=== PATIENT | female | born 1945 | race Caucasian/White ===

== ENCOUNTER → 2017-10-20 12:04 | Outpatient (CLI) | payer MEDICARE, OTHER, SELFPAY ==
--- NOTE | 2017-10-20 | DI.MG.S_ITS ---
BILATERAL DIGITAL DIAGNOSTIC MAMMOGRAM 3D/2D: 10/20/2017 CLINICAL: Right breast lump. Family history of breast cancer. Comparison is made to exams dated: 01/08/2015 mammogram - [facility], 02/27/2010 mammogram, and 02/11/2007 mammogram - [facility]. The tissue of both breasts is predominantly fatty. No significant masses, calcifications, or other findings are seen in either breast. IMPRESSION: INCOMPLETE: NEEDS ADDITIONAL IMAGING EVALUATION There is no mammographic abnormality seen in the right breast to correspond with the palpable abnormality and pain, however, ultrasound is recommended. This exam was interpreted at Station ID: [id number]. NOTE: For mammograms, a report in lay terms will be sent to the patient. Approximately 15% of breast malignancies will not be visualized mammographically. In the management of a palpable breast mass, a negative mammogram must not discourage biopsy of a clinically suspicious lesion. Electronically Signed By: Dominga durbin/charisse:10/20/2017 17:04:45 letter sent: Additional Imaging Needed ACR BI-RADS Category 0: Incomplete [id number]
--- NOTE | 2017-10-20 | DI.US.S_ITS ---
PROCEDURE: US BREAST RT LIMITED COMPARISON: None. INDICATIONS: RIGHT BREAST LUMP FINDINGS: IMPRESSION: Dictated by: Dominga Bhardwaj M.D. on 10/20/2017 at 17:03 Approved by: Dominga Bhardwaj M.D. on 10/20/2017 at 17:05
== END ==
PROVIDERS: Family Provider Family Medicine; PCP Family Medicine; Visit Provider Family Medicine
DX: R92.8 Other abnormal and inconclusive findings on diagnostic imaging of breast (principal); N64.4 Mastodynia; N63.10 Unspecified lump in the right breast, unspecified quadrant; Z80.3 Family history of malignant neoplasm of breast
CPT/HCPCS: 76642; 77066; G0279

== ENCOUNTER 2018-10-26 08:04 | Day surgery (SDC) | payer MEDICARE, OTHER, SELFPAY ==
[2018-10-22 10:38] VITALS: BMI 34.7
--- NOTE | 2018-10-26 | DI.RAD.S_ITS ---
PROCEDURE: XR LUMBAR SPINE 2-3V INDICATIONS: L3 KYPHOPLASTY TECHNIQUE: 3 views of the lumbar spine were acquired. COMPARISON: Gilbert Balderrama, CARLIE, L-SPINE MINIMUM 4 VIEWS, 10/11/2012, 12:50. FINDINGS: Fluoroscopic images demonstrating operative marker and subsequent cement at the level LIII consistent with kyphoplasty. Cement is also noted at L4. There is questionable appearance of possible cement extravasation of L3. IMPRESSION: Kyphoplasty as above. Dictated by: Anabell Bingham M.D. on 10/26/2018 at 19:24 Approved by: Anabell Bingham M.D. on 10/26/2018 at 19:25
--- NOTE | 2018-10-26 | PATH_ITS ---
[facility] Accession Number: [id number] . 01 Material submitted: . bone - BONE L3 . 01 Diagnosis: Bone L3, Biopsy: Fragments of bone and marrow with hemorrhage, fibrosis and associated repair/remodeling, consistent with fracture changes. Negative for malignancy. MRV 10/28/2018 1538 Local . 01 Electronically signed: . Jodi Huang MD, Pathologist NPI- [id number] . 01 Gross description: . Received one formalin-filled container labeled with the patient's name and labeled bone L3. The specimen consists of a 0.2-0.3 cm in diameter, cylindrical-shaped portion of bone which measures 0.5 cm in length. The specimen is entirely submitted in one cassette and will be placed in Decal for softening. ([id number]) /[facility] 10/27/2018 0306 Local . 01 Pathologist provided ICD-10: M80.00XA, S32.040A, M54.5 . 01 CPT . 835241, [id number] [facility] [address] [place] [address] [id number] MD Marty Campbell MD Phone: [phone]
[2018-10-26] MEDS: LACTATED RINGERS 1,000 ML 42 ML IV (11:33)
[2018-10-26 11:47] VITALS: BMI 34.7
[2018-10-26 11:54] VITALS: BP 138/101; PULSE 91; RESP 20; TEMP 36.6; O2SAT 95
--- NOTE | 2018-10-26 13:39 | PM.PREOP ---
Pre-operative Note Interval Note History & Physical reviewed/Exam performed by Physician: Yes Changes to H&P: No
[2018-10-26] MEDS: CLINDAMYCIN 600 MG/50 ML PIGGYBACK 50 MG IV (14:34)
--- NOTE | 2018-10-26 14:39 | SUR.OPER ---
Prone on spine table, head in foam head support, padded chest and pelvic supports, gel pad at knees, lower legs supported by pillows; nipples, genitalia and toes free of pressure, arms secured on foam padded arm boards at <90 degrees abduction. Tape over blanket at thigh secured to table.
[2018-10-26] MEDS: BUPIVACAINE 0.25% W/ EPI 30 ML VIAL 60 ML INJ (14:44)
--- NOTE | 2018-10-26 15:04 | PM.OP.1 ---
Operative Date/Time/Diagnoses Date of procedure: 10/26/18 Time of procedure: 15:05 Pre-op diagnosis: L3 compression fracture osteoporosis back pain Post-op diagnosis: same Procedure & Clinicians Procedure: L3 kyphoplsty Same procedure as scheduled: Yes Indications: [age] year old female with intractable pain from acute L3 compression fracture. They had failed conservative management and requested operative intervention. Risks and benefits of surgery were discussed and appropriate consents were obtained. Click Yes if Unassisted: Yes Anesthesia Type: General Operative Notes Findings: None Closure Type: primary Specimen(s): other (L3 bone biopsy) Estimated Blood Loss (mL): 3 Procedure in detail: The patient was brought to the operating room and intubated on the table. They were then rolled over to the well-padded prone position. Time-out was performed. We confirmed positioning with two fluoroscopy views. The back was prepped and draped in the standard sterile fashion. Preoperative antibiotics were given. Using fluoroscopic guidance, the planned incision site was infiltrated with Marcaine with epinephrine and injected down to the entry site of the left pedicle of L3. A small stab incision was made and we advanced a Jamshiedi needle down the left pedicle into the vertebral body. A bone biopsy was harvested from this and sent to pathology. We then passed the DFine osteotome and opened it up to create a void inside the vertebral body. We then began injecting the cement. This was done with frequent fluoroscopy imaging. There was no extravasation. Once we had good fill of the L3 vertebral body the injection was stopped and the trocars were removed. Final x-rays were taken. The wound was cleaned. Steri-Strips and sterile dressing were placed. Patient was rolled over, extubated, and brought to recovery without complications. Complications: none Post-operative Condition: stable Disposition: PACU Plan for aftercare: Activity as tolerated. Outpatient.
[2018-10-26 15:08] VITALS: BP 131/87; PULSE 106; RESP 19; TEMP 37.3; O2SAT 93
[2018-10-26 15:14] VITALS: BP 121/52; PULSE 107; RESP 20; O2SAT 90
[2018-10-26 15:25] VITALS: BP 124/87; PULSE 96; RESP 18; O2SAT 95
[2018-10-26] MEDS: ALBUTEROL 2.5 MG/3 ML NEB (ADULT) INH (15:28)
[2018-10-26 15:29] VITALS: BP 136/76; PULSE 99; RESP 18; O2SAT 96
--- NOTE | 2018-10-26 15:34 | SUR.PHASEI ---
Pt arrived, r arm with skin tar covered by tegaderm in OR, R hand IV infiltrated, purple in color and swollen. D/c'ed IV restarted.
[2018-10-26 16:00] VITALS: BP 139/87; PULSE 96; RESP 18; TEMP 36.7; O2SAT 96
--- NOTE | 2018-10-26 16:37 | SUR.PHASEI ---
Late entry: Pt with wheezing, neb treatment given, wheezing resolved.
--- NOTE | 2018-10-26 16:57 | SUR.PHASEII ---
)2 weaned off in PACU, back dressing remained c/d/i. Aleven silicone dressing applied to r wrist skin tear. Coban applied to r hand iiv site. Ice pack placed on area and pt instructed to keep r hand elevated as much as possible to help with swelling. No neuro deficits on discharge, and pt stated an understanding of d/c instructions and pt left when ready and left in stable condition.
== END 2018-10-26 16:10 | disposition home or self-care (01) ==
PROVIDERS: PCP Family Medicine; Visit Provider Orthopaedic Surgery
PROC: (CPT 22514; principal; 2018-10-26 13:15)
DX: S32.040A Wedge compression fracture of fourth lumbar vertebra, initial encounter for closed fracture (principal); M80.00XA Age-related osteoporosis with current pathological fracture, unspecified site, initial encounter for fracture; M54.9 Dorsalgia, unspecified
CPT/HCPCS: 22514; 72100; 76000; C1776; J0330; J1100; J2250; J2405; J2704; J3010; J7613